=== PATIENT | male | born 1975 | race Caucasian/White ===

== ENCOUNTER 2016-12-20 13:15 | Emergency (ER) | payer SELFPAY ==
[~2016-12-20] VITALS: Wt 85.2 kg
[~2016-12-20 13:15] MED LIST: CLON0.5T4 PO
== END 2016-12-20 16:40 | disposition left against medical advice (07) ==
LOC: FTE 13:15
DX: Z53.21 Procedure and treatment not carried out due to patient leaving prior to being seen by health care provider (principal)

== ENCOUNTER 2017-09-24 15:24 | Emergency (ER) | payer OTHER ==
[~2017-09-24] VITALS: Ht 175.3 cm; Wt 83.7 kg
[2017-09-24 15:42] VITALS: Ht 175.3 cm; Wt 83.7 kg
--- NOTE | 2017-09-24 16:53 | ERD ---
ER Documentation Chief Complaint Chief Complaint right rib pain radiating to back x 6days HPI Anxiety disorder on Klonopin pt cousin from gastric cancer and he is having panic attaches, pt reports fear denies depression. symptoms started Sunday r/t he and his having to do all the arrangements for the denies HI/SI ROS All systems reviewed and are negative except as per history of present illness. Medications Home Meds Active Scripts Alprazolam* (Xanax*) 0.5 Mg Tab, 0.5 MG PO Q8H Y for ANXIETY, #14 TAB Prov:YOSSI,FLAQUITA 09/24/17 Reported Medications Clonazepam* (Clonazepam*) 0.5 Mg Tablet, 0.5 MG PO DAILY, 0 Refills 02/09/12 Allergies Allergies: Coded Allergies: No Known Drug Allergies (Verified Allergy, Unknown, 09/24/17) PMhx/Soc History of Surgery: Yes (cholecystectomy) Anesthesia Reaction: No Hx Neurological Disorder: No Hx Respiratory Disorders: No Hx Cardiac Disorders: Yes (HYPERLIPIDEMIA) Hx Psychiatric Problems: Yes (ANXIETY) Hx Miscellaneous Medical Probl: Yes (acid reflux, had endoscopy few months back ) Hx Alcohol Use: No Hx Substance Use: No Hx Tobacco Use: No Physical Exam Vitals Vital Signs Date Time Temp Pulse Resp B/P Pulse Ox O2 Delivery O2 Flow Rate FiO2 09/24/17 15:42 98.4 78 20 134/91 96 Physical Exam Const: Well-nourished well-appearing anxious male patient in no acute distress Head: Eyes: ENT: Neck: Resp: Clear to auscultation bilaterally Cardio: Regular rate and rhythm, no murmurs Abd: Soft, non tender, non distended. Normal bowel sounds Skin: Back: Ext: No cyanosis, or edema Neur: Awake and alert Psych: Affect is pleasant, anxious, Results 24 hrs Current Medications Medications (Trade) Dose Ordered Sig/Penny Route PRN Reason Start Time Stop Time Status Last Admin Dose Admin Lorazepam (Ativan) 1 mg ONCE ONCE PO 09/24/17 17:00 09/24/17 17:01 DC 09/24/17 17:03 Procedures/MDM PROCEDURE: XR Abdomen. CLINICAL INDICATION: Right flank pain. TECHNIQUE: AP supine abdomen x-ray. COMPARISON: 01/27/2014. FINDINGS: The bowel gas pattern is normal with no evidence of obstruction. Surgical clips are present in the right upper quadrant of the abdomen. There are no abnormal calcifications overlying the urinary tracts. The osseus structures are unremarkable. IMPRESSION: 1. Prior right upper quadrant abdomen surgery. 2. Otherwise unremarkable abdomen radiograph. Electronically viewed and signed by .Cholo Anderson MD, on 09/24/2017 17:26 This 41-year-old male patient presents to emergency department for evaluation of right upper abdominal pain, pain is localized under his rib cage, patient reports history of cholecystectomy, patient reports anxiety disorder in that his cousin has from gastric cancer 4 days ago, patient states that he was responsible for arranging all of the as well as addressing his cousin. Patient is shaking, appears anxious, reports he is on 1 mg of Klonopin in the morning which helps, he has not been evaluated by a psychiatrist, he has not gone to any sort of cognitive therapy. Patient denies suicidal ideation, patient denies homicidal ideation, emergency room course includes history and physical exam, unremarkable abdominal assessment, plan to obtain a flat plate of the abdomen regardless. Patient receives 1 mg of Xanax, states that he has called his primary physician prior to coming to emergency department, patient has no follow-up appointment at this time. Flatplate of abdomen shows prior right upper quadrant surgery, otherwise unremarkable abdomen radiograph plan to discharge patient home with 0.5 mg of Xanax to take as needed every 8 hours, continue Klonopin, follow-up with primary provider for referral to psychiatrist. Patient is stable with no new complaints during ER course, clinically there is no current evidence to suggest suicidal ideation, homicidal ideation, schizophrenia, psychotic episode, acute abdomen, acute coronary syndromes, pulmonary embolism or any other emergent condition appearing to require further evaluation or hospitalization. I feel the patient is stable for discharge at this time. I have discussed results, examination findings, the treatment plan with the patient and family present prior to discharge. Indications for emergent reevaluation, side effects of medication were also discussed. All questions were answered. Patient verbalizes understanding and agrees with plan of care. Departure Diagnosis: Primary Impression: Anxiety attack Condition: Good Patient Instructions: Anxiety Reaction, Panic Attack Additional Instructions: Thank you for for coming to [facility] for your care today. Please ask your nurse or provider if you have questions about your care today and do not leave until all your questions have been answered. Please use any medications given as directed and follow-up with your doctor (or the doctor you were referred to) in the next 2-3 days. If you do not have a primary care doctor you may follow up at the [facility] (listed below). You may also use motrin and tylenol as needed for fever and/or pain unless instructed otherwise by your provider or nurse. Indications for more urgent follow-up have been discussed, but you may return to the Emergency Department at ANY time for any worrisome or worsening symptoms. If you have abdominal pain, please know that no test or exam you received is perfect and you should follow up within 8 hours for continued pain. If you had any imaging studies today, such as an X-Ray or CT Scan, these studies will be reviewed later by a radiologist. You will be called if there are important findings that were not identified today, so make sure the contact information you provided at registration is correct. If you received any narcotic pain control medicine today, such as Vicodin, Morphine or Dilaudid, your coordination and judgment may be affected for a number of hours. Please do not drive or operate heavy machinery, and you may want someone to assist you at home. If you were given a prescription for narcotic medication, be aware that it is very addictive- use sparingly and only if necessary. FLAQUITA SY Sep 24, 2017 16:53
[2017-09-24] MEDS ORDERED: LORAZEPAM 1 MG TAB PO ONE (17:00)
--- NOTE | 2017-09-24 17:27 | RADRPT ---
PROCEDURE: XR Abdomen. CLINICAL INDICATION: Right flank pain. TECHNIQUE: AP supine abdomen x-ray. COMPARISON: 01/27/2014. FINDINGS: The bowel gas pattern is normal with no evidence of obstruction. Surgical clips are present in the right upper quadrant of the abdomen. There are no abnormal calcifications overlying the urinary tracts. The osseus structures are unremarkable. IMPRESSION: 1. Prior right upper quadrant abdomen surgery. 2. Otherwise unremarkable abdomen radiograph. RPTAT: QQ .Cholo Anderson MD, MD Date Time Electronically viewed and signed by .Cholo Anderson MD, MD on 09/24/2017 17:26 .R/
[2017-09-24] MEDS ORDERED: ALPR0.5T PO (18:06)
== END 2017-09-24 19:08 | disposition home or self-care (01) ==
LOC: FTE 15:24
DX: F41.9 Anxiety disorder, unspecified (principal)
CPT/HCPCS: 74000; Z7502; Z7610

== ENCOUNTER 2017-12-06 07:17 | Emergency (ER) | END 2017-12-06 10:53 | disposition home or self-care (01) ==

== ENCOUNTER 2018-09-17 20:37 | Emergency (ER) | END 2018-09-17 23:10 | disposition home or self-care (01) ==

== ENCOUNTER 2019-06-03 19:52 | Emergency (ER) | payer OTHER ==
[~2019-06-03 19:52] MED LIST changes: +BACITUD TOP; +BEN25 PO; +CEPH-443 PO; -CLON0.5T4 PO; +CLON1TAB13 PO; +EPIN0.3P4 INJ; +IBUP800T48 PO; +MUPI22OI2 TOP; +OMEP20CA16 PO; +PRED20TA PO
--- NOTE | 2019-06-03 20:48 | ERD ---
ER Documentation Chief Complaint Chief Complaint HPI This is a 43-year-old male who presents here to emerge department with complaints of left foot insect bite for about 3 days. Applied ointment in this. Denies headache, head injury, loss of consciousness, dizziness, neck pain, neck stiffness, throat pain, difficulty swallowing, difficulty breathing lying flat, shoulder pain, chest pain, back pain, abdominal pain, nausea, vomiting, constip ation, diarrhea, urinary symptoms, loss of bowel and bladder control, trauma, injury, falls, difficulty walking due to pain, numbness or tingling sensation, calf pain, recent travel, recent major surgery in the last 3 weeks, calf pain, recent long travel, recent exposure to any illness, recent antibiotic use in the last 3 months, fever, chills, seizures. Past medical history: Denies. Surgical history: Denies. Social: Denies smoking, use of alcoholic beverages, use of illegal drugs. ROS All systems reviewed and are negative except as per history of present illness. Medications Home Meds Active Scripts Bacitracin* (Bacitracin Oint (UD)*) 1 Applic Oint, 1 APPLIC TOP BID for 5 Days, PKT APPLY TO Prov:MYNOR FRANKLIN F 06/03/19 Ibuprofen* (Motrin*) 800 Mg Tab, 800 MG PO Q6H PRN for PAIN AND OR ELEVATED TEMP, #30 TAB Prov:MYNOR FRANKLIN F 06/03/19 Cephalexin* (Keflex*) 500 Mg Capsule, 500 MG PO TID for 7 Days, CAP Prov:PASILABANANNABELLAAR F 06/03/19 Diphenhydramine Hcl* (Benadryl*) 25 Mg Cap, 25 MG PO TID PRN for ITCHING/RASH, #30 TAB Prov:TOMMY ARROYO MD 09/17/18 Epinephrine (Epipen 2-Wilbert) 0.3 Mg/0.3 Ml Pen.injctr, 1 EA INJ ONCE PRN for ALLERGIC REACTION, #1 EA Prov:TOMMY ARROYO MD 09/17/18 Prednisone* (Prednisone*) 20 Mg Tab, 40 MG PO DAILY for 4 Days, TAB Prov:TOMMY ARROYO MD 09/17/18 Reported Medications Omeprazole* (Omeprazole*) 20 Mg Capsule.dr, 20 MG PO DAILY, #30 CAP 09/17/18 Clonazepam* (Clonazepam*) 1 Mg Tablet, 1 MG PO Q8H PRN for ANXIETY, TAB 09/17/18 Allergies Allergies: Coded Allergies: shellfish derived (Verified Allergy, Severe, anaphalaxis, 09/17/18) PMhx/Soc History of Surgery: Yes (cholecystectomy) Anesthesia Reaction: No Hx Neurological Disorder: No Hx Respiratory Disorders: No Hx Cardiac Disorders: Yes (HYPERLIPIDEMIA) Hx Psychiatric Problems: Yes (ANXIETY) Hx Miscellaneous Medical Probl: Yes (acid reflux, had endoscopy few months back) Hx Alcohol Use: Yes (social) Hx Substance Use: No Hx Tobacco Use: No Physical Exam Physical Exam Const: No acute distress Head: Atraumatic Eyes: Normal Conjunctiva ENT: Normal External Ears, Nose and Mouth. Neck: Full range of motion. No meningismus. Resp: Clear to auscultation bilaterally Cardio: Regular rate and rhythm, no murmurs Abd: Soft, non tender, non distended. Normal bowel sounds Skin: No petechiae or rashes Back: No midline or flank tenderness Ext: No cyanosis, or edema. Left foot: Dorsal area has a circular redness that is warm to touch is measuring approximately 2 cm in diameter and is consistent with cellulitis. No induration. Pedal pulses within normal limits. Capillary refills is less than 2 seconds. No neurovascular deficit. No calf tenderness bilaterally. Neur: Awake and alert Psych: Normal Mood and Affect Procedures/MDM Diagnostic tests: Clinical exam. Treatment: Not applicable. Re-evaluation: Not applicable. Differential diagnosis I have low suspicion for osteomyelitis, deep space infection, compartment syndrome, DVT. Final diagnosis: Skin infection. Cellulitis. Patient is insisting on antibiotics. Prescription: Keflex. Bactroban. Motrin. Follow-up with PCP in the next 24-48 hours. Come back here in the emergency department for any new symptoms or any worsening symptoms. All questions and concerns were answered. Patient and family members verbalized understanding and agreed with plan of care. Hemodynamically stable on discharge. Departure Diagnosis: Primary Impression: Skin infection Condition: Stable Additional Instructions: Follow-up with PCP in the next 24-48 hours. Come back here in the emergency department for any new symptoms or any worsening symptoms. MYNOR FRANKLIN Jun 03, 2019 20:48
[2019-06-03 21:17] VITALS: BP 136/88; PULSE 61; RESP 18
== END 2019-06-03 21:16 | disposition home or self-care (01) ==
LOC: FTE 19:52
DX: L08.9 Local infection of the skin and subcutaneous tissue, unspecified (principal); L03.116 Cellulitis of left lower limb
CPT/HCPCS: 99283